=== PATIENT | female | born 1980 | race Caucasian/White ===

== ENCOUNTER 2019-01-01 21:01 | Emergency (ER) | payer MEDICAID ==
[~2019-01-01] VITALS: Ht 160 cm; Wt 99.8 kg
[2019-01-01 21:35] VITALS: BP_SYST 157
--- NOTE | 2019-01-01 21:44 | NUR ---
Patient triaged and placed in waiting room. VSS and patient appears in no acute distress at this time. Accompanied by family, awaiting available bed, and MD notified of need for MSE.
--- NOTE | 2019-01-02 00:15 | NUR ---
Called pt in x 3, no answer
--- NOTE | 2019-01-02 00:15 | NUR ---
Patient left without being seen. No further treatment provided. ER MD aware
== END 2019-01-02 00:15 | disposition left against medical advice (07) ==
LOC: SED 21:01
DX: R11.10 Vomiting, unspecified (principal); R05 Cough; Z53.21 Procedure and treatment not carried out due to patient leaving prior to being seen by health care provider
CPT/HCPCS: 36415; 86710